=== PATIENT | female | born 1990 | race Caucasian/White ===

== ENCOUNTER 2019-09-30 16:38 | Outpatient (REF) | payer OTHER, SELFPAY ==
--- NOTE | 2019-09-30 15:30 | PAPFT_PTH ---
PATIENT: Lizz Golden LOC: [facility] U#:[id number] AGE/SX: 28/F ROOM: RE09/30/[address]: Cristina Sanz : 1990 BED: DIS: 09/30/2019 SPEC #: [id number] RECD: 10/01/19 13:03 STATUS: VENITA RECorazon #: [id number] GLENNA: 09/30/19 15:[address]: Cristina Sanz DEPT: [facility] Cytology RECD BY: [facility] T[facility] ENTERED: 10/01/19 13:03 SP TYPE: PAPFT OTHR DR: Sharee eReves Tissues: 1 - CX/ENDOCX FOR PAP SMEARS Procedures: PAP THIN PREP/[facility] Screening Comments: [id number] (CHLAMYDIA/GC)
[2019-10-02 16:51] LABS: Chlamydia Result Negative (Negative); GC Result Negative (Negative)
== END 2019-09-30 16:58 ==
LOC: NCHCN 16:38
PROVIDERS: Visit Provider Family Medicine
DX: Z11.3 Encounter for screening for infections with a predominantly sexual mode of transmission (principal); Z12.4 Encounter for screening for malignant neoplasm of cervix
CPT/HCPCS: 87491; 87591; 88142

== ENCOUNTER 2021-02-08 14:58 | Outpatient (REF) | payer OTHER, SELFPAY ==
[2021-02-09 16:53] LABS: COVID-19 RT-PCR UVMMC Result Positive (Negative)
== END 2021-02-08 14:59 | disposition home or self-care (01) ==
LOC: NCHCN 14:58
PROVIDERS: Visit Provider Family Medicine
DX: Z20.822 Contact with and (suspected) exposure to COVID-19 (principal)
CPT/HCPCS: U0003

== ENCOUNTER 2023-10-18 15:45 | Outpatient (REF) | payer BC, SELFPAY ==
[2023-10-18 15:39] LABS: ALT 45 U/L (14-59); AST 37 U/L (15-37); Albumin 3.7 g/dL (3.4-5.0); Alkaline Phosphatase 67 U/L (46-116); Anion Gap 10.1 mmol/L (3-11); BUN 12 mg/dL (7-18); Bilirubin, Total 0.32 mg/dL (0.2-1.0); CO2 24.9 mmol/L (21.0-32.0); Calcium 8.9 mg/dL (8.5-10.1); Calculated LDL 196 mg/dL (<100); Chloride 103 mmol/L (98-107); Cholesterol 283 mg/dL (<200); Estimated GFR 77.72 (mL/min/1.73m2); Glucose 91 mg/dL (74-106); HDL Cholesterol 66 mg/dL (40-60); Potassium 4.1 mmol/L (3.5-5.1); Sodium 138 mmol/L (136-145); Total Protein 7.1 g/dL (6.4-8.2); Triglyceride 108 mg/dL (<150); Vitamin D 25 Total 23.1 ng/mL (30-100)
== END 2023-10-18 15:46 | disposition home or self-care (01) ==
LOC: NCHCN 15:45
PROVIDERS: Visit Provider Family Medicine
DX: Z00.00 Encounter for general adult medical examination without abnormal findings (principal)
CPT/HCPCS: 80053; 80061; 82306

== ENCOUNTER 2024-10-23 10:52 | Outpatient (REF) | payer SELFPAY ==
--- NOTE | 2024-10-23 08:30 | PAPFT_PTH ---
PATIENT: Lizz Golden LOC: [facility] U#:[id number] AGE/SX: 33/F ROOM: RE10/23/[address]: Cristina Sanz : 1990 BED: DIS: 10/23/2024 SPEC #: [id number] RECD: 10/23/24 17:45 STATUS: KARELBrandyn RECorazon #: [id number] GLENNA: 10/23/24 08:[address]: Cristina Sanz DEPT: [facility] Cytology RECD BY: Ct Tread[facility] ENTERED: 10/23/24 17:46 SP TYPE: PAPFT OT DR: Unknown,Unknown Tissues: 1 - CX/ENDOCX FOR PAP SMEARS Procedures: PAP THIN PREP/[facility] Screening HPV DNA PROBE Comments: [id number] (HPV 16 & 18/45)
== END 2024-10-23 10:53 | disposition home or self-care (01) ==
LOC: NCHCN 10:52
PROVIDERS: Visit Provider Family Medicine
DX: Z12.4 Encounter for screening for malignant neoplasm of cervix (principal)
CPT/HCPCS: 88142; 87624